=== PATIENT | female | born 1975 | race Caucasian/White ===

== ENCOUNTER 2018-08-06 22:00 | Emergency (ER) | END 2018-08-06 23:06 | disposition left against medical advice (07) ==

== ENCOUNTER 2018-09-04 00:41 | Emergency (ER) | END 2018-09-04 01:19 | disposition left against medical advice (07) ==

== ENCOUNTER 2019-05-24 13:29 | Emergency (ER) | payer MEDICAID, OTHER ==
[~2019-05-24] VITALS: Ht 165.1 cm; Wt 62.6 kg
[~2019-05-24 13:29] MED LIST: INSU100C SC; INSU100C SQ; ONDA4TAB11 PO
[2019-05-24 13:35] VITALS: Ht 165.1 cm; Wt 62.6 kg
--- NOTE | 2019-05-24 14:07 | ERD ---
ER Documentation Chief Complaint Chief Complaint no insulin for 3 days, d/c fr [facility] rehab w/o finishing abx, BS:rina HPI 43-year-old female with known history of diabetes who is also homeless presenting with complaints of high blood sugar requesting the insulin refill. She also states that she was recently discharged from [facility] to a senior care facility after she was diagnosed with an abscess of her upper chest wall. It was thought that this was due to her IV drug use. She was told she needed 6 weeks of IV antibiotics. She received 2 weeks of treatment in the hospital then was discharged to the senior care facility. She had to go check on her belongings so she left the senior care facility and they would not accept her back. They discharged her with her right upper extremity PICC line from the nursing facility without medications. Patient states that she never got any prescriptions from the nursing facility and her blood sugar has been seriously elevated. She is requesting an insulin prescription but does not want to stay in the hospital. ROS All systems reviewed and are negative except as per history of present illness. Medications Home Meds Active Scripts Syrge-Ndl,Ins 0.3 ml Half Gopal (Insulin Syringe) 1 Each Disp.syrin, EACH MC BID, #30 Prov:SAUD CRISOSTOMO MD 05/24/19 Insulin Lispro (Humalog) 100 Unit/1 Ml Cartridge, 25 UNIT SQ BID for 30 Days, EA Prov:SAUD CRISOSTOMO MD 05/24/19 Clindamycin Hcl* (Clindamycin Hcl*) 300 Mg Capsule, 300 MG PO TID for 14 Days, CAP Prov:SAUD CRISOSTOMO MD 05/24/19 Insulin Lispro (Humalog) 100 Unit/1 Ml Cartridge, 100 UNIT SQ BID for 30 Days, EA Prov:QUAN GUZMAN PA-C 09/04/18 Ondansetron (Zofran Odt) 4 Mg Tab.rapdis, 4 MG PO Q6 PRN for NAUSEA AND/OR VOMITING, #10 Prov:CARSON AGUILAR DO 08/06/18 Insulin Lispro (Humalog) 100 Unit/1 Ml Cartridge, 25 UNIT SC BID for 10 Days, EA Prov:CARSON AGUILAR DO 08/06/18 Allergies Allergies: Coded Allergies: No Known Allergy (Unverified , 08/06/18) PMhx/Soc History of Surgery: Yes () Anesthesia Reaction: No Hx Neurological Disorder: No Hx Respiratory Disorders: Yes (ASTHMA) Hx Cardiac Disorders: No Hx Psychiatric Problems: Yes (DEPRESSION, ANXIETY, ADHD, BIPOLAR) Hx Miscellaneous Medical Probl: Yes (DM) Hx Alcohol Use: No Hx Substance Use: No (former drug user) Hx Tobacco Use: No FmHx Family History: No coronary disease Physical Exam Vitals Vital Signs Date Temp Pulse Resp B/P (MAP) Pulse Ox O2 O2 Flow FiO2 Time Delivery Rate 05/24/19 98.1 123 18 144/79 98 13:35 (100) Physical Exam Const: No acute distress Head: Atraumatic Eyes: Normal Conjunctiva ENT: Dry oral mucosa. Normal External Ears, Nose and Mouth. Neck: Full range of motion. No meningismus. No JVD Chest Wall: Mass palpable at the upper chest wall left of the upper sternal border. Minimal overlying erythema. Minimal tenderness. No fluctuance. Resp: Clear to auscultation bilaterally Cardio: Regular rate and rhythm, no murmurs. 2+ distal pulses Abd: Soft, non tender, non distended. Normal bowel sounds Skin: No petechiae or rashes Back: No midline or flank tenderness Ext: No cyanosis, or edema Neur: Awake and alert, no facial asymmetry, normal speech, moving all extremities spontaneously Psych: Normal Mood and Affect Result Diagram: 05/24/19 1516 05/24/19 1516 Results 24 hrs Laboratory Tests Test 05/24/19 13:39 05/24/19 15:16 05/24/19 15:25 05/24/19 15:39 Bedside Glucose > 595 mg/dL White Blood Count 8.5 10^3/ul Red Blood Count 4.17 10^6/ul Hemoglobin 11.4 g/dl Hematocrit 35.2 % Mean Corpuscular 84.4 fl Volume Mean Corpuscular 27.3 pg Hemoglobin Mean Corpuscular 32.4 g/dl Hemoglobin Concen t Red Cell 14.6 % Distribution Width Platelet Count 463 10^3/UL Mean Platelet 11.0 fl Volume Immature 0.400 % Granulocytes % Neutrophils % 51.7 % Lymphocytes % 39.6 % Monocytes % 4.9 % Eosinophils % 2.5 % Basophils % 0.9 % Nucleated Red 0.0 /100WBC Blood Cells % Immature 0.030 10^3/ul Granulocytes # Neutrophils # 4.4 10^3/ul Lymphocytes # 3.4 10^3/ul Monocytes # 0.4 10^3/ul Eosinophils # 0.2 10^3/ul Basophils # 0.1 10^3/ul Nucleated Red 0.0 10^3/ul Blood Cells # Sodium Level 127 mmol/L Potassium Level 4.9 mmol/L Chloride Level 91 mmol/L Carbon Dioxide 22 mmol/L Level Anion Gap 14 Blood Urea 19 mg/dl Nitrogen Creatinine 0.88 mg/dl Est Glomerular > 60 mL/min Filtrat Rate mL/min Glucose Level 859 mg/dl Calcium Level 9.2 mg/dl Urine Color STRAW Urine Clarity CLEAR Urine pH 6.0 Urine Specific 1.027 [place] Urine Ketones NEGATIVE mg/dL Urine Nitrite NEGATIVE mg/dL Urine Bilirubin NEGATIVE mg/dL Urine NEGATIVE mg/dL Urobilinogen Urine Leukocyte NEGATIVE Huseyin/ul Esterase Urine Microscopic 4 /HPF RBC Urine Microscopic 3 /HPF WBC Urine Squamous FEW /HPF Epithelial Cells Urine Hemoglobin 1+ mg/dL Urine Glucose 3+ mg/dL Urine Total NEGATIVE mg/dl Protein POC Beta HCG, NEGATIVE Qualitative Test 05/24/19 16:41 Bedside Glucose > 595 mg/dL Current Medications Medications Dose Sig/Dmitriy Start Time Status Last (Trade) Ordered Route PRN Stop Time Admin Dose Reason Admin Sodium 1,000 ml @ Q1H STAT 05/24/19 DC 05/24/19 Chloride 1,000 mls/hr IV 14:46 15:32 05/24/19 15:45 Lactated 1,000 ml @ Q1H STAT 05/24/19 DC Ringer's 1,000 mls/hr IV 16:08 05/24/19 17:07 Insulin 10 unit ONCE STAT 05/24/19 DC 05/24/19 Human SC 16:08 16:47 Lispro 05/24/19 16:10 (Humalog) Procedures/MDM EMERGENT LABS AND DIAGNOSTIC STUDIES: Lab Results above were reviewed and interpreted by me. CBC: no anemia or evidence of infection CMP: No evidence of clinically significant electrolyte abnormality, acidosis, renal failure, hypoglycemia, liver disease, or biliary obstruction Lipase: no evidence of pancreatitis Troponin within normal limits, not indicative of cardiac ischemia Lactate within normal limits without evidence of sepsis or tissue hypoperfusion UA: no evidence of infection 12-lead EKG was interpreted by Hui Crisostomo MD: Normal Sinus Rhythm with ventricular rate of [] beats per minute Normal axis Normal intervals No acute ST or T wave changes suggestive of acute ischemia or STEMI. Radiology Results as interpreted by Radiology below were reviewed by Laura Crisostomo MD: [Radiology Results as read by Radiology] Initial Nursing notes reviewed. Previous Medical Records requested via the Electronic Health Record. EMERGENCY DEPARTMENT COURSE / MEDICAL DECISION MAKING: Patient is presenting for insulin refill with a chest abscess that was not fully treated. Currently she has no fever and her vitals are unremarkable. She does have a significantly elevated blood sugar with a blood glucose of 859. There is no signs of sepsis at this time. Patient was treated with IV fluids. I recommended she stay in the hospital to continue her treatment for her abscess with IV antibiotics as well as to stabilize her hyperglycemia. No evidence of acidosis at this time. She is neurovascularly intact on exam. However patient does not want to stay in the hospital. She just wants her insulin and is requesting oral antibiotics. She agrees to return for worsening symptoms. The patient has made the decision to leave this Emergency Department and any ongoing care against the advice of the emergency physician. The patient has been informed of and verbalized understanding of the inherent risks of this decision, including , disability. The patient explained to me the reason for wanting to sign out against medical advice which was she did not have anyone to watch her belongings as she is homeless. The patient was given alternative therapeutic options including oral outpatient antibiotics, which she was told with likely not completely treat the infection. The patient has the capacity to make this decision and accepts the responsibility of leaving at this time. The patient and all necessary parties have been advised that the patient may return at any time for further evaluation or treatment. The patient's condition at time of discharge is fair, guarded Prescription for insulin and clindamycin for 14 days given. Patient's blood pressure was elevated (>120/80) but appears stable without evidence of hypertensive emergency or urgency. The patient was counseled about the risks of hypertension and urged to pursue outpatient monitoring and therapy within a week with their primary care physician. Departure Diagnosis: Primary Impression: Abscess of chest wall Additional Impression: Hyperglycemia Condition: Fair SAUD CRISOSTOMO MD May 24, 2019 14:07
[2019-05-24] MEDS ORDERED: SOD CHLORIDE 0.9% 1,000 ML IV STA (14:46)
[2019-05-24] MEDS ORDERED: INSULIN LISPRO 100 UNIT/ML VIAL SC STA (16:08)
[2019-05-24] MEDS ORDERED: LACTATED RINGER'S 1,000 ML IV STA (16:08)
[2019-05-24 16:15] VITALS: BP 138/82; PULSE 110; RESP 18
[2019-05-24] MEDS ORDERED: CLIN300C10 PO (16:39)
[2019-05-24] MEDS ORDERED: INSU100C SQ (16:41)
[2019-05-24] MEDS ORDERED: SYRG1DIS22 MC (17:11)
== END 2019-05-24 17:23 | disposition left against medical advice (07) ==
LOC: E/R 13:29
DX: E11.65 Type 2 diabetes mellitus with hyperglycemia (principal); L02.213 Cutaneous abscess of chest wall; J45.909 Unspecified asthma, uncomplicated; Z79.4 Long term (current) use of insulin
CPT/HCPCS: 80048; 81001; 81025; 82962; 85025; J1815; J7030; J7120; 36415; 96372

== ENCOUNTER 2019-06-27 15:16 | Emergency (ER) | payer OTHER ==
[~2019-06-27] VITALS: Ht 165.1 cm; Wt 66.4 kg
[~2019-06-27 15:16] MED LIST changes: +CLIN300C10 PO; +IBUP-1542 PO; +SYRG1DIS22 MC
[2019-06-27 15:22] VITALS: Ht 165.1 cm; Wt 66.4 kg
--- NOTE | 2019-06-27 15:48 | ERD ---
ER Documentation Chief Complaint Chief Complaint hyperglycemia has been without insulin x 1 week, glucose "hi" HPI Patient has history of diabetes ran out of her insulin 1 week ago. Since then has been having fatigue and polyuria. No vomiting or abdominal pain no altered mental status. Here for refills. Denies any infectious symptoms. Denies any chest pain or shortness of breath ROS All systems reviewed and are negative except as per history of present illness. Medications Home Meds Active Scripts Insulin Lispro (Humalog) 100 Unit/1 Ml Cartridge, 25 UNIT SQ BID for 30 Days, EA Prov:SAUD GUTIERREZ MD 05/24/19 Discontinued Scripts Syrge-Ndl,Ins 0.3 ml Half Gopal (Insulin Syringe) 1 Each Disp.syrin, EACH MC BID, #30 Prov:SAUD GUTIERREZ MD 05/24/19 Clindamycin Hcl* (Clindamycin Hcl*) 300 Mg Capsule, 300 MG PO TID for 14 Days, CAP Prov:SAUD GUTIERREZ MD 05/24/19 Insulin Lispro (Humalog) 100 Unit/1 Ml Cartridge, 100 UNIT SQ BID for 30 Days, EA Prov:QUAN GUZMAN PA-C 09/04/18 Ondansetron (Zofran Odt) 4 Mg Tab.rapdis, 4 MG PO Q6 PRN for NAUSEA AND/OR VOMITING, #10 Prov:CARSON AGUILAR DO 08/06/18 Insulin Lispro (Humalog) 100 Unit/1 Ml Cartridge, 25 UNIT SC BID for 10 Days, EA Prov:CARSON AGUILAR DO 08/06/18 Allergies Allergies: Coded Allergies: No Known Allergy (Unverified , 06/27/19) PMhx/Soc History of Surgery: Yes () Anesthesia Reaction: No Hx Neurological Disorder: No Hx Respiratory Disorders: Yes (ASTHMA) Hx Cardiac Disorders: No Hx Psychiatric Problems: Yes (DEPRESSION, ANXIETY, ADHD, BIPOLAR) Hx Miscellaneous Medical Probl: Yes (DM) Hx Alcohol Use: No Hx Substance Use: No (former drug user) Hx Tobacco Use: No Physical Exam Vitals Vital Signs Date Temp Pulse Resp B/P (MAP) Pulse Ox O2 O2 Flow FiO2 Time Delivery Rate 06/27/19 98.9 128 18 138/84 98 15:22 (102) Physical Exam Const: No acute distress Head: Atraumatic Eyes: Normal Conjunctiva ENT: Normal External Ears, Nose and Mouth. Neck: Full range of motion. No meningismus. Resp: Clear to auscultation bilaterally Cardio: Regular rate and rhythm, no murmurs Abd: Soft, non tender, non distended. Normal bowel sounds Skin: No petechiae or rashes Back: No midline or flank tenderness Ext: No cyanosis, or edema Neur: Awake and alert Psych: Normal Mood and Affect Result Diagram: 06/27/19 1556 06/27/19 1556 Results 24 hrs Laboratory Tests Test 06/27/19 15:22 06/27/19 15:54 06/27/19 15:56 Bedside Glucose > 595 mg/dL > 595 mg/dL White Blood Count 9.3 10^3/ul Red Blood Count 4.50 10^6/ul Hemoglobin 12.4 g/dl Hematocrit 36.6 % Mean Corpuscular Volume 81.3 fl Mean Corpuscular Hemoglobin 27.6 pg Mean Corpuscular 33.9 g/dl Hemoglobin Concent Red Cell Distribution Width 14.5 % Platelet Count 313 10^3/UL Mean Platelet Volume 11.2 fl Immature Granulocytes % 0.400 % Neutrophils % 52.4 % Lymphocytes % 39.2 % Monocytes % 4.8 % Eosinophils % 2.4 % Basophils % 0.8 % Nucleated Red Blood Cells % 0.0 /100WBC Immature Granulocytes # 0.040 10^3/ul Neutrophils # 4.9 10^3/ul Lymphocytes # 3.6 10^3/ul Monocytes # 0.4 10^3/ul Eosinophils # 0.2 10^3/ul Basophils # 0.1 10^3/ul Nucleated Red Blood Cells # 0.0 10^3/ul Sodium Level 131 mmol/L Potassium Level 4.1 mmol/L Chloride Level 97 mmol/L Carbon Dioxide Level 22 mmol/L Anion Gap 12 Blood Urea Nitrogen 14 mg/dl Creatinine 1.06 mg/dl Est Glomerular Filtrat Rate mL/min 56 mL/min Glucose Level Pending Calcium Level 9.3 mg/dl Phosphorus Level 5.4 mg/dl Magnesium Level 1.7 mg/dl Current Medications Medications Dose Sig/Dmitriy Start Time Status Last (Trade) Ordered Route PRN Stop Time Admin Dose Reason Admin Sodium 660 ml @ ONCE ONCE 06/27/19 06/27/19 Chloride 660 mls/hr IV 16:00 16:07 06/27/19 16:59 Sodium 1,000 ml @ Q30M ONCE 06/27/19 06/27/19 Chloride 2,000 mls/hr IV 16:30 16:08 06/27/19 16:59 Procedures/MDM Patient with hyperglycemia known trigger medication noncompliance DKA ruled out. Given IV Fluids and reassessed. Patient HDS. Will be prescribed insulin Departure Diagnosis: Primary Impression: Hyperglycemia Condition: Stable GLEN DASILVA MD Jun 27, 2019 15:48
[2019-06-27] MEDS ORDERED: SOD CHLORIDE 0.9% 660 ML IV ONE (16:00)
[2019-06-27] MEDS ORDERED: INSULIN REGULAR, HUMAN 100 UNIT/1 ML 3ML VIAL IVP STA (16:29)
[2019-06-27] MEDS ORDERED: SOD CHLORIDE 0.9% 1,000 ML IV ONE (16:30)
[2019-06-27] MEDS ORDERED: DEXTROSE 50% 50 ML SYRINGE IV PRN (16:30)
[2019-06-27 17:00] VITALS: BP 140/88; PULSE 98; RESP 18
== END 2019-06-27 17:09 | disposition home or self-care (01) ==
LOC: E/R 15:16
DX: E11.65 Type 2 diabetes mellitus with hyperglycemia (principal); J45.909 Unspecified asthma, uncomplicated; Z79.4 Long term (current) use of insulin
CPT/HCPCS: 36415; 80048; 82803; 82962; 83735; 84100; 85025; 96374; J1815; J7030; Z7502

== ENCOUNTER 2019-07-27 00:05 | Emergency (ER) | payer OTHER ==
[~2019-07-27] VITALS: Ht 154.9 cm; Wt 63.6 kg
[~2019-07-27 00:05] MED LIST changes: -CLIN300C10 PO; -INSU100C SC; -ONDA4TAB11 PO; -SYRG1DIS22 MC
[2019-07-27 00:07] VITALS: Ht 154.9 cm; Wt 63.6 kg
[2019-07-27 01:22] VITALS: BP 128/72; PULSE 94; RESP 17
== END 2019-07-27 01:22 | disposition home or self-care (01) ==
LOC: FTE 00:05
DX: Z76.0 Encounter for issue of repeat prescription (principal); E11.9 Type 2 diabetes mellitus without complications; J45.909 Unspecified asthma, uncomplicated; Z79.4 Long term (current) use of insulin
CPT/HCPCS: 99281

== ENCOUNTER 2019-08-28 01:08 | Emergency (ER) | payer OTHER ==
[~2019-08-28] VITALS: Ht 165.1 cm; Wt 65.9 kg
[~2019-08-28 01:08] MED LIST changes: +DEXT1TAB12 PO; +INSU100I33 SC; +INSU100I46 SQ; +LANT3I SC; +NITR-58 PO; +[UNRECOGNIZED DRUG - CODE] MC
[2019-08-28 01:15] VITALS: BP 129/81; PULSE 116; RESP 20; Ht 165.1 cm; Wt 65.9 kg
[2019-08-28] MEDS ORDERED: INSULIN REGULAR, HUMAN 100 UNIT/1 ML 3ML VIAL SC ONE (03:00)
[2019-08-28] MEDS ORDERED: SOD CHLORIDE 0.9% 660 ML IV ONE (03:00)
== END 2019-08-28 03:38 | disposition home or self-care (01) ==
LOC: E/R 01:08
DX: E11.65 Type 2 diabetes mellitus with hyperglycemia (principal); J45.909 Unspecified asthma, uncomplicated; Z79.4 Long term (current) use of insulin
CPT/HCPCS: 82962; 96372; J1815; J7030; Z7502